=== PATIENT | male | born 1955 | race Caucasian/White ===

== ENCOUNTER 2020-06-17 14:34 | Emergency (ER) | payer MEDICARE, OTHER ==
[~2020-06-17] VITALS: Ht 167.6 cm; Wt 78.0 kg
[~2020-06-17 14:34] MED LIST: APIX5TAB PO; ASPI-515 PO; ASPI81TA45 PO; ATOR-2 PO; ATOR20TA PO; CARV12.52 PO; CARV25TA12 PO; CARV6.2512 PO; HYDR-3241 PO; HYDR-3653 PO; LISI-167 PO; LORA-446 PO; MELA5TAB14 PO; NITR0.4T28 SL; POLY17PO5 PO; PRAS10TA4 PO; SPIR25TA PO; SPIR25TA5 PO; TICA90TA PO
[2020-06-17] MEDS ORDERED: DABI150C PO (14:53)
[2020-06-17] MEDS ORDERED: ATOR40TA PO (14:53)
[2020-06-17] MEDS ORDERED: CARV6.2512 PO (14:53)
[2020-06-17] MEDS ORDERED: LISI-170 PO (14:53)
[2020-06-17 15:51] LABS: TROPONIN I < 0.015 ng/mL (0.000-0.045)
--- NOTE | 2020-06-17 16:12 | NUR ---
ASSUMED CARE OF PT. RECEIVED REPORT FROM EVON HUDDLESTON. PATIENT COMPLAINS OF CHEST PAIN/PRESSURE STARTING AT 0400 TODAY WHICH WAS RELIEVED WITH NITRO. NO CHEST PAIN AT THIS TIME. DISCUSSED PLAN OF CARE. NO FAMILY AT BEDSIDE. CALL LIGHT WITHIN REACH. PT ON CONTINUOUS CARDIAC MONIOR.
--- NOTE | 2020-06-17 16:18 | NUR ---
CHART UP FOR MD RECHECK
[2020-06-17 17:08] VITALS: BP 166/93
== END 2020-06-17 17:12 | disposition home or self-care (01) ==
LOC: ED 16:38
DX: R07.9 Chest pain, unspecified (principal); R94.31 Abnormal electrocardiogram [ECG] [EKG]; I11.0 Hypertensive heart disease with heart failure; I50.9 Heart failure, unspecified; I25.10 Atherosclerotic heart disease of native coronary artery without angina pectoris; I25.2 Old myocardial infarction; E11.9 Type 2 diabetes mellitus without complications; Z86.73 Personal history of transient ischemic attack (TIA), and cerebral infarction without residual deficits; Z95.5 Presence of coronary angioplasty implant and graft
CPT/HCPCS: 36415; 84484; 93005; 99284